=== PATIENT | male | born 1970 | race Caucasian/White ===

== ENCOUNTER 2023-01-27 12:03 | Observation (INO) | payer OTHER ==
[2023-01-27 12:43] VITALS: BMI 19.1
[2023-01-27] MEDS ORDERED: hydrALAZINE 20 MG/ML VIAL SLOW IVP PRN (13:28)
[2023-01-27] MEDS ORDERED: Lactated Ringer's 1,000 ML IV SCH (13:45)
[2023-01-27] MEDS: Nicotine 21 MG PATCH TD SCH (17:11)
[2023-01-27] MEDS ORDERED: NIFEdipine XL 60 MG TAB PO SCH (18:00)
[2023-01-27] MEDS: Diphenoxylate HCl/Atropine Tablet PO PRN (18:45)
[2023-01-27] MEDS ORDERED: Atorvastatin Calcium 40 MG TAB PO SCH (21:00)
[2023-01-28] MEDS: Diphenoxylate HCl/Atropine Tablet PO PRN ×2 (00:36→14:34)
[2023-01-28 04:46] LABS: Anion Gap 14 mmol/L (10-20); BUN (Urea Nitrogen) 6 mg/dL (8.4-25.7); Calc. Creatinine Clearance 131 mL/min (70-130); Calcium 8.5 mg/dL (7.8-10.44); Carbon Dioxide 24 mmol/L (22-29); Chloride 104 mmol/L (98-107); Estimated GFR 115; Glucose 73 mg/dL (70-105); Potassium 3.7 mmol/L (3.5-5.1); Sodium 138 mmol/L (136-145)
[2023-01-28 04:47] LABS: #Monocytes 0.4 10x3/uL (0.0-1.1); #Neutrophils 1.2 10x3/uL (1.5-8.4); %Basophils 0.9 % (0.0-2.0); %Eosinophils 1.2 % (0.0-6.0); %Lymphocytes 47.1 % (18.0-47.0); %Monocytes 13.2 % (0.0-10.0); %Neutrophils 37.3 % (40.0-75.0); Hematocrit 51.4 % (38.8-50.0); Hemoglobin 18.1 g/dL (13.5-17.5); Mean Corpuscular HGB CONC 35.2 g/dL (32.0-36.0); Mean Corpuscular Hemoglobin 34.2 pg (27.0-33.0); Mean Corpuscular Volume 97.2 fl (81.2-95.1); Mean Platelet Volume 9.5 fl (7.4-10.4); Platelet Count 115 10x3/uL (150-450); RBC Distribution Width 13.1 % (11.5-14.5); Red Blood Cell (RBC) Count 5.29 10x6/uL (4.32-5.72); White Blood Cell (WBC) Count 3.3 10x3/uL (3.5-10.5)
[2023-01-28 05:11] LABS: Large Platelets SLIGHT (None Seen); Platelet Adequacy Comment Appears Decreased; RBC Morph Comment Within Normal Limits
[2023-01-28 05:18] LABS: Cholesterol 96 mg/dl (< 200 Desired); HDL Cholesterol 32 mg/dL (>60 Neg Risk); LDL Cholesterol, Calculated 45 mg/dL; Triglycerides 93 mg/dL (Less than 150)
[2023-01-28] MEDS ORDERED: Thiamine 100 MG TAB PO SCH (09:00)
[2023-01-28] MEDS ORDERED: Clopidogrel Bisulfate 75 MG TAB PO SCH (09:00)
[2023-01-28] MEDS ORDERED: NIFEdipine XL 60 MG TAB PO SCH (09:00)
[2023-01-28] MEDS ORDERED: Folic Acid 1 MG TAB PO SCH (09:00)
[2023-01-28] MEDS ORDERED: Multivit, Therapeutic 1 TAB PO SCH (09:00)
[2023-01-28] MEDS ORDERED: Aspirin 81 mg Enteric Coated Tablet PO SCH (09:00)
[2023-01-28 12:08] VITALS: TEMP 98.5
[2023-01-28 13:19] LABS: Hemoglobin A1c 4.9 % (4.0-6.0)
[2023-01-28] MEDS: Nicotine 21 MG PATCH TD SCH (14:16)
[2023-01-28 15:15] VITALS: BP 143/73
== END 2023-01-28 14:52 | disposition home or self-care (01) ==
LOC: INTOOBSV 12:03 → CSHTELE 12:03
PROVIDERS: ADMIT Internal Medicine; ATTEND Internal Medicine
DX: G45.9 Transient cerebral ischemic attack, unspecified (principal); I49.49 Other premature depolarization; I10 Essential (primary) hypertension; I82.409 Acute embolism and thrombosis of unspecified deep veins of unspecified lower extremity; G62.9 Polyneuropathy, unspecified; F17.210 Nicotine dependence, cigarettes, uncomplicated; D75.1 Secondary polycythemia; F10.10 Alcohol abuse, uncomplicated; I73.9 Peripheral vascular disease, unspecified; R13.10 Dysphagia, unspecified; Z79.02 Long term (current) use of antithrombotics/antiplatelets; Z79.82 Long term (current) use of aspirin; Z79.899 Other long term (current) drug therapy
CPT/HCPCS: 36415; 70551; 80048; 80061; 83036; 84443; 85025; 93306; 96372; G0378; J1650; J7120